=== PATIENT | female | born 1990 | race Caucasian/White ===

== ENCOUNTER 2016-11-16 10:20 | Emergency (ER) | payer MEDICAID ==
[2016-11-16 10:26] VITALS: RESP 16; TEMP 98.6
[2016-11-16] MEDS ORDERED: predniSONE 20 MG TAB PO ONE (10:53)
[2016-11-16] MEDS ORDERED: ALBUTEROL 3 ML DEYVIAL IH ONE (10:53)
--- NOTE | 2016-11-16 11:41 | EDPHY ---
H & P Time Seen by Provider: 11/16/16 11:38 HPI/ROS: HPI: This is a 26-year-old female who presents with Chief Complaint: Sinus congestion Location: Sinus Quality: Congestion Duration: 2-3 days Signs and Symptoms: No fever, no rhinorrhea, no headache, no ear pain, + sore throat, positive nonproductive cough, no wheezing, no chills, no nausea vomiting Timing: Sudden onset, intermittent in nature Severity: [id number] Context: Patient has a history of asthma. + tobacco user but has not smoked in 2-3 days. Has not needed to use her inhaler. She works in a daycare. Patient complains of nasal congestion, sinus pressure times 2-3 days accompanied by sore throat. No difficulty talking or swallowing. Last menstrual period was last week. Modifying Factors: Has tried NyQuil p.m. for the symptoms Comment: ROS: Eyes: No blurred vision Respiratory: No shortness of breath,+ cough Cardiovascular: No chest pain Gastrointestinal: No nausea, no vomiting no diarrhea Genitourinary: No dysuria Extremities: No myalgias Neurologic: No weakness, no numbness Skin: No rashes Hematologic: No bruising, no bleeding MEDICAL/SURGICAL HISTORY: Asthma, depression. Denies any surgical history Social History: In a relationship. Employed. Smoking Status: Current every day smoker Physical Exam: CONSTITUTIONAL: Nontoxic appearing adult white female, awake and alert, no obvious distress HEENT: Atraumatic and normocephalic, PERRL, EOMI. Tympanic membranes clear. Oropharynx clear, no exudate, no tonsillar hypertrophy, no tonsillar erythema, uvula midline, and moist pink mucosa. Airway patent. No lymphadenopathy. No meningismus. Cardiovascular: Normal S1/S2, regular rate, regular rhythm, without murmur rub or gallop. PULMONARY/CHEST: Symmetrical and nontender. Clear to auscultation bilaterally Good air movement. No accessory muscle usage. ABDOMEN: Soft, nondistended, nontender, no rebound, no guarding, no peritoneal signs, no masses or organomegaly. No CVAT. EXTREMITIES: 2/2 pulses, no deformities, no clubbing, no cyanosis or edema. NEUROLOGICAL: no focal neuro deficits. GCS 15. SKIN: Warm and dry, no erythema. no rash. Good capillary refill. Constitutional: Initial Vital Signs Temperature (C) 37 C 11/16/16 10:21 Heart Rate 88 11/16/16 10:21 Respiratory Rate 16 11/16/16 10:21 Blood Pressure 144/96 H 11/16/16 10:21 O2 Sat (%) 97 11/16/16 10:21 O2 Delivery Mode Room Air Allergies/Adverse Reactions: acetaminophen [From Percocet] Allergy (Mild, Verified 11/16/16 10:27) itch oxycodone [From Percocet] Allergy (Mild, Verified 11/16/16 10:27) itch tramadol Allergy (Mild, Verified 11/16/16 10:27) itch Home Medications: Medication Instructions Recorded Albuterol 5 mg/ml INH [Proventil] 2.5 mg IH QID PRN #1 btl 11/16/16 DULoxetine [Cymbalta 30 MG (*)] 30 mg PO 11/16/16 Lurasidone HCl [Latuda] 40 mg PO DAILY 11/16/16 lamoTRIgine [LamICTAL 100 MG (*)] 100 mg PO 11/16/16 predniSONE [Prednisone] 40 mg PO DAILY #20 tablet 11/16/16 Medical Decision Making - Diagnostics Imaging Results: Imaging Impressions Chest X-Ray 11/16/16 10:53 Impression: Findings consistent with reactive airways disease are noted with no superimposed pneumonia identified. ED Course/Re-evaluation: Chest x-ray, strep test, oral medication, and nebulizer therapy ordered Afebrile. No systemic signs. No signs of tonsillar abscess/airway compromise. Given albuterol nebulizer therapy as well as p.o. prednisone 60 mg Strep test is negative. Chest x-ray my read shows no pneumonia, no effusion. Does show findings consistent with reactive airway disease. Opiate treat patient has asthma exacerbation with several days of steroids. Differential Diagnosis: Differential diagnosis includes but is not limited to bacterial sinusitis, upper respiratory infection, asthma exacerbation. - Data Points Laboratory Results: 11/16/16 11/16/16 Unknown 10:50 Group A Strep Screen NEGATIVE (NEGATIVE) Group A Strep DNA Pending Medications Given: Discontinued Medications Albuterol (Proventil Neb) 3 ml IH EDNOW ONE Stop: 11/16/16 10:54 Last Admin: 11/16/16 11:02 Dose: 3 ml Prednisone (Prednisone) 60 mg PO EDNOW ONE Stop: 11/16/16 10:54 Last Admin: 11/16/16 11:03 Dose: 60 mg Departure - Departure Disposition: Home, Routine, Self-Care Clinical Impression: Upper respiratory infection, viral, Asthma exacerbation, mild Condition: Good Additional Instructions: You do not have strep throat. Perform salt water gargles as needed for sore throat. Take Sudafed every 6 hours as needed for nasal congestion. Take 5 days of steroids and use albuterol inhaler as needed for shortness of breath or wheezing. Referrals: Rebeca Santiago PA [Primary Care Provider] - 3-4 days, if not improved Prescriptions: Albuterol 5 mg/ml INH [Proventil] 2.5 mg IH QID PRN #1 btl PRN Reason: Wheezing predniSONE [Prednisone] 40 mg PO DAILY #20 tablet
[2016-11-16 12:08] VITALS: BP 128/78; PULSE 81; O2SAT 98
== END 2016-11-16 12:07 | disposition home or self-care (01) ==
DX: J45.901 Unspecified asthma with (acute) exacerbation (principal); J06.9 Acute upper respiratory infection, unspecified; F17.200 Nicotine dependence, unspecified, uncomplicated

== ENCOUNTER → 2017-03-23 | Outpatient (CLI) | payer MEDICAID | LOC: FCPNEURO 21:00 | PROVIDERS: ATTEND Student in an Organized Health Care Education/Training Program | DX: G47.33 Obstructive sleep apnea (adult) (pediatric) (principal) ==

== ENCOUNTER → 2017-04-23 | Outpatient (CLI) | payer MEDICAID | LOC: BMCIMAGING 14:50 | PROVIDERS: ATTEND Advanced Practice Midwife | DX: N63.10 Unspecified lump in the right breast, unspecified quadrant (principal) ==

== ENCOUNTER → 2018-01-10 | Outpatient (CLI) | payer OTHER | LOC: FIMAGING 16:04 | PROVIDERS: ATTEND Nurse Practitioner | DX: M25.561 Pain in right knee (principal); M25.562 Pain in left knee ==